=== PATIENT | male | born 1990 | race Two or more races ===

== ENCOUNTER 2016-07-14 09:25 | Emergency (ER) | payer BC ==
[~2016-07-14] VITALS: Ht 177.8 cm; Wt 81.6 kg
[2016-07-14 09:36] VITALS: BP 138/80
[2016-07-14] MEDS: IBUPROFEN 800 MG TAB PO ONE (11:20)
== END 2016-07-14 11:39 | disposition home or self-care (01) ==
LOC: ER 09:25
DX: S62.335A Displaced fracture of neck of fourth metacarpal bone, left hand, initial encounter for closed fracture (principal); W22.8XXA Striking against or struck by other objects, initial encounter; Y93.01 Activity, walking, marching and hiking; Y99.8 Other external cause status; Y92.89 Other specified places as the place of occurrence of the external cause
CPT/HCPCS: 29125; 73130